=== PATIENT | female | born 2000 | race African-American/Black ===

== ENCOUNTER 2022-02-21 06:50 | Emergency (ER) | payer OTHER ==
[~2022-02-21] VITALS: Ht 167.6 cm; Wt 90.0 kg
[2022-02-21 08:27] VITALS: BP 162/87
[2022-02-21] MEDS ORDERED: CEPH500T PO (08:43)
[2022-02-21] MEDS ORDERED: SULF1TAB48 PO (08:43)
== END 2022-02-21 08:59 | disposition home or self-care (01) ==
LOC: ER 06:50
DX: L60.0 Ingrowing nail (principal); L03.032 Cellulitis of left toe
CPT/HCPCS: 99283